=== PATIENT | male | born 1960 | race Caucasian/White ===

== ENCOUNTER 2016-08-29 09:14 | Day surgery (SDC) | payer BC ==
[2016-08-29] MEDS ORDERED: LIDOCAINE 2% MDV (20MG/ML) 20ML VIAL IV ONE (14:00)
[2016-08-29] MEDS ORDERED: PROPOFOL 10 MG/ML VIAL IV ONE (14:00)
[2016-08-29] MEDS ORDERED: MIDAZOLAM HCL 2MG/2ML VIAL IV ONE (14:00)
--- NOTE | 2016-08-31 11:56 | Operative Note ---
DATE OF SURGERY: 08/29/2016 OPERATION: COLONOSCOPY with cold snare and cold forceps polypectomies. PREOPERATIVE DIAGNOSIS: History of polyps. POSTOPERATIVE DIAGNOSIS: Polyps. PREPARATION QUALITY: Good. ESTIMATED BLOOD LOSS: Minimal. SPECIMENS: Transverse colon and descending colon polyps. PROCEDURE: After informed consent was obtained from the patient, he was placed in the left lateral decubitus position in the endoscopy suite, sedated and monitored by the department of anesthesia. Digital rectal exam was unremarkable. A well-lubricated [id number] colonoscope was inserted into the rectum and advanced to the cecum. Preparation quality was good at best. The cecum was unremarkable, as was the ascending colon. In the proximal transverse colon there was a 5 mm sessile polyp removed with a cold snare with minimal bleeding noted. There were also 2 diminutive polyps in the transverse colon and descending colon each removed with a cold forceps. Minimal bleeding was noted at these sites. The remainder of the transverse colon, descending colon, sigmoid colon, and rectum were otherwise unremarkable. Forward and J-turn views of the rectum and anorectum were unremarkable. The endoscope was straightened, the rectal ampulla deflated, and the endoscope was removed. RECOMMENDATIONS: The patient will require repeat exam between 3 to 5 years depending on tissue histology. He is otherwise to resume his medications. Further recommendations based on tissue histology. As always, thank you for allowing me to participate in the healthcare of your patients. CC: CORWIN KRISHNAN D.O. KITA
== END 2016-08-29 11:25 | disposition home or self-care (01) ==
LOC: HOP 09:14
PROVIDERS: ATTEND Internal Medicine Gastroenterology
DX: Z86.010 Personal history of colon polyps (principal); D12.4 Benign neoplasm of descending colon; D12.3 Benign neoplasm of transverse colon; K63.5 Polyp of colon; I10 Essential (primary) hypertension; E03.9 Hypothyroidism, unspecified